=== PATIENT | female | born 1995 | race Caucasian/White ===

== ENCOUNTER 2021-09-29 17:07 | Emergency (ER) | payer BC, MEDICAID ==
[~2021-09-29] VITALS: Ht 170.2 cm; Wt 71.4 kg
[2021-09-29 17:09] VITALS: BP 124/79
[2021-09-29] MEDS ORDERED: TETanus/Pertussis (Acell)/Diphther VAC/PF (Tdap-Adult) 0.5ml syringe IMVAC ONE (18:00)
== END 2021-09-29 18:11 | disposition home or self-care (01) ==
LOC: ER 17:07
DX: S01.311A Laceration without foreign body of right ear, initial encounter (principal); Z20.3 Contact with and (suspected) exposure to rabies; X58.XXXA Exposure to other specified factors, initial encounter; Y93.89 Activity, other specified; Y92.89 Other specified places as the place of occurrence of the external cause; Y99.8 Other external cause status
CPT/HCPCS: 90471; 90715; 99283